=== PATIENT | female | born 1960 | race Caucasian/White ===

== ENCOUNTER 2020-09-27 14:14 | Emergency (ER) | payer OTHER ==
[2020-09-27 15:11] LABS: BASOPHIL 0.7 % (0-2); EOSINOPHIL 0.4 % (0-5); HGB 14.1 g/dl (12.5-16.0); LYMPHOCYTE 27.9 % (15-48); MCHC 32.8 g/dL (32.0-36.0); MCV 91.5 fL (78.0-100.0); MONOCYTE 6.4 % (0-12); MPV 10.7 fL (6.0-9.5); NEUTROPHIL 64.3 % (41-80); NRBC 0; PLT 306 K/uL (150-400); RDW 13.8 % (11.5-14.0); WBC 9.9 K/uL (4.0-10.5)
[2020-09-27 15:32] LABS: ALBUMIN 3.6 g/dL (3.4-5.0); BILIRUBIN - TOTAL 0.3 mg/dL (0.2-1.0); BUN/CREAT RATIO (CALC) 15.8 RATIO; CREATININE 1.01 mg/dL (0.51-0.95); GLOBULIN (CALCULATION) 3.9 g/dL; POTASSIUM 4.1 mmol/L (3.5-5.1); TOTAL PROTEIN 7.5 g/dL (6.4-8.2)
[2020-09-27 16:05] LABS: BILIRUBIN NEGATIVE (NEGATIVE); BLOOD 3+ Ery/uL (NEGATIVE); CLARITY HAZY (CLEAR); COLOR YELLOW (YELLOW); GLUCOSE (U) NORMAL (NORMAL); LEUKOCYTES NEGATIVE Leu/uL (NEGATIVE); NITRITE NEGATIVE (NEGATIVE); PROTEIN NEGATIVE (NEGATIVE); SPECIFIC GRAVITY >=1.030 (1.001-1.030); UROBILINOGEN 0.2 mg/dL (0.2-1.0); pH 5.5 (5.0-9.0)
[2020-09-27 16:12] LABS: URINARY RBC 20-50; URINARY WBC RARE
[2020-09-27 16:13] LABS: BACTERIA TRACE; CALCIUM OXALATE CRYSTALS MODERATE
[2020-09-27] MEDS ORDERED: FLOMAX0.4 MG PO (18:18)
[2020-09-27] MEDS ORDERED: NORCO 5-325 TA1 EACH PO (18:18)
[2020-09-27] MEDS ORDERED: ZOFRAN4 M1 PO (18:18)
== END 2020-09-27 18:38 | disposition home or self-care (01) ==
LOC: FER 14:14
PROVIDERS: Internal Medicine
DX: N13.2 Hydronephrosis with renal and ureteral calculous obstruction (principal); Z87.442 Personal history of urinary calculi
CPT/HCPCS: 36415; 80053; 81001; 85025; J1885; J2405; J7030